=== PATIENT | female | born 1995 | race African-American/Black ===

== ENCOUNTER 2019-04-10 14:50 | Emergency (ER) | payer OTHER ==
[2019-04-10] MEDS ORDERED: ACETAMINOPHEN 325 MG TABLET PO ONE (15:45)
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
[2019-04-10 17:30] VITALS: BP 151/85
== END 2019-04-10 17:29 | disposition home or self-care (01) ==
LOC: ER 14:50
DX: S20.229A Contusion of unspecified back wall of thorax, initial encounter (principal); M54.6 Pain in thoracic spine; M54.5 Low back pain; M79.605 Pain in left leg; V89.2XXA Person injured in unspecified motor-vehicle accident, traffic, initial encounter; F17.200 Nicotine dependence, unspecified, uncomplicated
CPT/HCPCS: 72070; 72110; 99283